=== PATIENT | female | born 1990 | race Caucasian/White ===

== ENCOUNTER → 2016-09-12 | Outpatient (CLI) | payer BC ==
--- NOTE | 2016-09-12 11:53 | MM ---
Reason for exam: clinical finding. History: Patient is nulliparous. Family history of breast cancer in mother at age 40 and breast cancer in maternal grandmother at age 60. Indicated problem(s): non-bloody discharge in both breasts. Physical Findings: Nurse did not find any significant physical abnormalities on exam. [facility] Diagnostic Mammo w CAD [id number] Bilateral CC and MLO view(s) were taken. The breast tissue is extremely dense which could obscure a lesion on mammography. No suspicious calcifications or masses are seen. There is no discrete abnormality. These results were verbally communicated with the patient and result sheet given to the patient on 09/12/16. ASSESSMENT: Negative, BI-RAD 1 RECOMMENDATION: Routine screening mammogram of both breasts at age 41. (per ACS guidelines) Manage patient on a clinical basis.
== END | disposition home or self-care (01) ==
LOC: RADMAMWWP 11:01
PROVIDERS: ATTEND Family Medicine
DX: N64.52 Nipple discharge (principal)